=== PATIENT | male | born 1965 | race Caucasian/White ===

== ENCOUNTER 2017-05-20 14:51 | Emergency (ER) | payer OTHER ==
[~2017-05-20] VITALS: Ht 180.3 cm; Wt 74.8 kg
[2017-05-20] MEDS ORDERED: SODIUM CHLORIDE IR ONE ×2 (14:57→15:08)
[2017-05-20 14:59] VITALS: BP 183/117
[2017-05-20] MEDS ORDERED: LIDOCAINE 1% VIAL ONE (15:09)
[2017-05-20] MEDS ORDERED: BOOSTRIX VACCINE SYRINGE IM STA (15:31)
--- NOTE | 2017-05-20 15:36 | ER.PDOC ---
General Chief Complaint: Extremities Stated Complaint: RIGHT LEG LACERATION Time seen by MD: 15:33 Source: patient Exam Limitations: no limitations History of Present Illness Initial Comments Laceration to right 1st toe by a pit bull Onset: just prior to arrival Where: other Severity: moderate Modifying Factors: pain on movement Allergies: Coded Allergies: No Known Allergies (Unverified , 05/20/17) Past Medical History Medical History: no pertinent history Surgical History: no surgical history Social History Smoking: chew Alcohol Use: none Drug Use: none Review of Systems Constitutional: no symptoms reported Respiratory: no symptoms reported Cardiovascular: no symptoms reported Gastrointestinal: no symptoms reported Skin: see HPI All Other Systems: Reviewed and Negative Physical Exam General Appearance: Alert, No Apparent Distress Foot: tenderness (right 1st toe with laceration), partial nail avulsion Ankle: nml inspection, non-tender, nml ROM, no joint swelling, skin intact Gait: limited by pain Neuro: sensation nml Tendons: tendon function nml Leg/Knee/Thigh: uninjured above ankle Skin: warm/dry Head/ENT: nml inspection, pharynx nml Neck/Back: nml inspection, non-tender Resp/CVS: no resp distress Abdomen: non-tender, no organomegaly ED LACERATION WOUND REPAIR # of Wounds/Lacerations Presen: 1 Wound Location & Length (Requi: Right 1st toe Wound Length (cm): 3 Wound cleaned: betadine Anesthesia type: digital block Anesthesia: 1% Lidocaine Volume Anesthetic (ccs): 10 Wound's Depth, Shape: irregular, nail-avulsed Irrigated w/ Saline (ccs): 2000 Wound Debrided: minimal Wound Repaired With: sutures Suture Size/Type: 4:0, prolene Suture Style: interupted Number of Sutures: 7 Nail/Nail Matrix: nail excised Sterile Dressing Applied?: Yes Progress Progress Patient properly counseled of the risk of infection and will need to follow up with an Orthopedic Surgeon or [employer] Sales Representative tomorrow. He comes from [facility] and will see his Ortho there thus no need to call Dr. Madrid for a follow up. EKG/XRAY/CT/US XRAY Comments: Comminuted fracture 1st distal Phalanx Course Blood Pressure Systolic: 183 Blood Pressure Diastolic: 117 Blood Pressure Mean: 139 Departure Time of Disposition: 17:04 Disposition: 01 HOME, SELF-CARE Impression: Primary Impression: Laceration of toe with damage to nail Additional Impression: Fracture of toe of right foot Condition: Stable Referrals: PCP,UNKNOWN (PCP) PRIMARY CARE PROVIDER Additional Instructions: Keflex Tylenol with Codeine F/U with Ortho or [employer] Sales Representative tomorrow. Duration or Time Spent with Pa: 90 mins Problem Qualifiers Primary Impression: Laceration of toe with damage to nail Encounter type: initial encounter Toe: great toe Foreign body presence: without foreign body Laterality: right Qualified Codes: S91.211A - Laceration without foreign body of right great toe with damage to nail, initial encounter Additional Impression: Fracture of toe of right foot Encounter type: initial encounter Toe: great toe Fracture type: open Phalanx: distal Fracture alignment: displaced Qualified Codes: S92.421B - Displaced fracture of distal phalanx of right great toe, initial encounter for open fracture MADELEINE HILL MD May 20, 2017 15:36
--- NOTE | 2017-05-20 15:51 | DIREP ---
PROCEDURE:XRAY FOOT MIN 3 VWS-RT COMPARISON:None. INDICATIONS:Pain right 1st toe FINDINGS: BONES:A comminuted fracture of the 1st distal phalanx is noted with fracture involving the articular surface of the 1st IP joint. JOINTS:Normal. SOFT TISSUES:Normal. OTHER:No additional findings. CONCLUSION: 1. Comminuted, intra-articular fracture of the 1st distal phalanx. Dictated by: Martell Souza M.D. on 05/20/2017 at 03:49 PM
[2017-05-20] MEDS ORDERED: TRIPLE ANTIBIOTIC OINTMENT TP ONE (16:45)
[2017-05-20] MEDS ORDERED: ANCEF IM STA (16:59)
[2017-05-20] MEDS ORDERED: NORCO 7.5MG PO STA (16:59)
[2017-05-20] MEDS ORDERED: ANCEF ONE (16:59)
[2017-05-20] MEDS ORDERED: NORCO 7.5MG PO ONE (17:00)
[2017-05-20] MEDS ORDERED: WATER 20 ML ONE (17:03)
[2017-05-20 17:11] VITALS: BP 164/93
[2017-05-20 17:48] VITALS: BP 164/93
--- NOTE | 2017-05-20 17:49 | NUR ---
Crutches Crutches were given to patient because of fracture of toe
== END 2017-05-20 17:19 | disposition home or self-care (01) ==
LOC: ER 14:51
DX: S92.421B Displaced fracture of distal phalanx of right great toe, initial encounter for open fracture (principal); F17.220 Nicotine dependence, chewing tobacco, uncomplicated; W54.1XXA Struck by dog, initial encounter; Y93.89 Activity, other specified; Y92.89 Other specified places as the place of occurrence of the external cause; Y99.8 Other external cause status
CPT/HCPCS: 12002; 73630; 90471; 96372; 99284; J0690; J2001; J7030 ×2; 99283; A4216